=== PATIENT | female | born 1970 | race Caucasian/White ===

== ENCOUNTER 2023-07-25 09:17 | Emergency (ER) | payer BC ==
[~2023-07-25] VITALS: Ht 162.6 cm; Wt 109.8 kg
[~2023-07-25 09:17] MED LIST: DICY20TA2 PO; DOCU-116 PO; POLY17PO4 PO
[2023-07-25 10:06] LABS: BASOPHILS # (AUTO) 0.05 K/uL (0.00-0.20); BASOPHILS % (AUTO) 0.9 % (0.0-5.0); EOSINOPHILS # (AUTO) 0.22 K/uL (0.00-0.70); EOSINOPHILS % (AUTO) 3.9 % (0.0-8.0); HEMATOCRIT 42.2 % (36-48); IMMATURE GRANULOCYTE ABSOLUTE 0.02 K/uL (0-1); LYMPHOCYTES # (AUTO) 1.6 K/uL (1.0-4.8); LYMPHOCYTES % (AUTO) 27.6 % (21.0-51.0); MEAN CORPUSCULAR HEMOGLOBIN 27.3 pg (27.0-33.0); MEAN CORPUSCULAR HGB CONC 32.9 g/dL (32.0-36.0); MEAN CORPUSCULAR VOLUME 82.7 fL (79-99); MONOCYTES # (AUTO) 0.3 K/uL (0.1-1.0); MONOCYTES % (AUTO) 5.8 % (3.0-13.0); NEUTROPHILS # (AUTO) 3.5 K/uL (1.8-7.7); NEUTROPHILS % (AUTO) 61.4 % (40.0-77.0); PLATELET COUNT (AUTO) 222 K/uL (130-400); RED CELL DISTRIBUTION WIDTH 13.1 % (11.0-15.5); WHITE BLOOD COUNT (AUTO) 5.7 K/uL (4.8-10.8)
[2023-07-25 10:16] LABS: CREATININE 0.8 mg/dL (0.5-1.5); POTASSIUM 4.1 mmol/L (3.5-5.1)
[2023-07-25 10:22] LABS: ALBUMIN 3.6 g/dL (3.5-5.0); BILIRUBIN,TOTAL 0.6 mg/dL (0.2-1.0); TOTAL PROTEIN, SERUM 7.6 g/dL (6.0-8.3)
[2023-07-25] MEDS ORDERED: IOHEXOL 350 MG/ML 100ML INFUS..BTL IV ONE (11:39)
[2023-07-25] MEDS ORDERED: LOSA50TA64 PO (17:38)
[2023-07-25] MEDS ORDERED: MECL-160 PO (17:38)
[2023-07-25] MEDS ORDERED: MECLIZINE HCL 25 MG TABLET PO ONE (18:00)
[2023-07-25] MEDS ORDERED: LOSARTAN 50 MG TABLET PO ONE (18:00)
[2023-07-25 18:26] VITALS: BP 155/90; PULSE 70; RESP 18; O2SAT 100
== END 2023-07-25 18:25 | disposition home or self-care (01) ==
LOC: EDH 09:17
DX: R42 Dizziness and giddiness (principal); R03.0 Elevated blood-pressure reading, without diagnosis of hypertension; E11.9 Type 2 diabetes mellitus without complications; Z90.49 Acquired absence of other specified parts of digestive tract
CPT/HCPCS: 99285; 70450; 70551; 84484; 80053; 83880; 85025; 36415; 70496; 70498; 93005; Q9967